=== PATIENT | female | born 1975 | race Caucasian/White ===

== ENCOUNTER 2020-08-20 20:34 | Emergency (ER) | payer OTHER ==
[2020-08-20 20:38] VITALS: TEMP 98.3
--- NOTE | 2020-08-20 21:14 | ED ---
Chest Pain HPI - General Chief Complaint: Chest Pain Stated Complaint: Chest Pain Time Seen by Provider: 08/20/20 20:40 Source: patient Mode of arrival: ambulatory Limitations: no limitations - History of Present Illness Initial Comments: 44-year-old female presents with nonspecific chest pain that started 8 hours prior to arrival. Patient states it started after helping her daughter put eyedrops in and it was stressful. Patient states it's mainly in the center to right side of her chest and it comes and goes. Patient currently has a pain level of 0-10. Patient's not short of breath. Patient did not take any medication prior to arrival. Note cardiac history per patient no medical history per patient. Patient just saw her family doctor last week Dr. Davis had a full code exam and everything was normal. No history of blood clots no leg edema no shortness of breath no cough or fever. 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 ROS Other: All systems not noted in ROS Statement are negative. Constitutional: Denies: fever, chills Respiratory: Denies: cough, dyspnea Cardiovascular: Reports: chest pain. Denies: palpitations, dyspnea on exertion, orthopnea Endocrine: Denies: fatigue Gastrointestinal: Denies: abdominal pain, nausea, vomiting EKG Findings - EKG Comments: EKG Findings:: nsr. pr interval 164. qrs: 88. vent rt 63 - EKG Results: EKG: WNL, sinus rhythm Past Medical History Past Medical History: No Reported History History of Any Multi-Drug Resistant Organisms: None Reported Past Surgical History: Section Past Psychological History: No Psychological Hx Reported Smoking Status: Never smoker Past Alcohol Use History: Occasional Past Drug Use History: None Reported General Exam Limitations: no limitations General appearance: alert, in no apparent distress Eye exam: Present: normal appearance, PERRL, EOMI. Absent: scleral icterus, conjunctival injection, periorbital swelling ENT exam: Present: normal exam, mucous membranes moist Neck exam: Present: normal inspection. Absent: tenderness, meningismus, lymphadenopathy Respiratory exam: Present: normal lung sounds bilaterally. Absent: respiratory distress, wheezes, rales, rhonchi, stridor Cardiovascular Exam: Present: regular rate, normal rhythm, normal heart sounds. Absent: systolic murmur, diastolic murmur, rubs, gallop, clicks GI/Abdominal exam: Present: soft, normal bowel sounds. Absent: distended, tenderness, guarding, rebound, rigid Course Vital Signs 08/20/20 08/20/20 08/20/20 20:35 20:56 22:00 Temperature 98.3 F Pulse Rate 72 62 Pulse Rate [ 59 L Audit Director ] Respiratory 18 16 Rate Blood Pressure 118/80 O2 Sat by Pulse 100 Oximetry Chest Pain MDM - Differential Diagnosis Esophageal Spasm, Chest Wall Syndrome, Panic Disorder/Anxiety - MDM Patient has been resting comfortably the entire visit. Patient has not had any pain the entire visit. Discussed case with , all labs and chest xray were wnl ekg:NSR pt will be discharged home and to have close follow up with pcp - [place] Criteria Clinical Symptoms of DVT: (0) No - PERC Rule No Prior History pf DVT/PE: (0) No No Recent Trauma or Surgery: (0) No - PETER Score Age > 65: (0) No 3 or more CAD Risk Factors: (0) No Known CAD with more than 50% Stenosis: (0) No Aspirin use within the Past 7 Days: (0) No Disposition Clinical Impression: Panic attack, Atypical chest pain Disposition: HOME SELF-CARE Condition: Fair Instructions (If sedation given, give patient instructions): Chest Pain (ED), Costochondritis (ED) Is patient prescribed a controlled substance at d/c from ED?: No Referrals: Lillian Davis DO [Primary Care Provider] - 1-2 days
--- NOTE | 2020-08-20 21:37 | XR ---
EXAMINATION TYPE: XR chest 2V DATE OF EXAM: 08/20/2020 COMPARISON: NONE HISTORY:chest pain TECHNIQUE: Frontal and lateral views of the chest are obtained. FINDINGS: There is no focal air space opacity, pleural effusion, or pneumothorax seen. The cardiac silhouette size is within normal limits. The osseous structures are intact. IMPRESSION: No acute cardiopulmonary process.
[2020-08-20 21:59] LABS: Basophils # (A) 0.1 k/uL (0-0.2); Basophils % (A) 1 %; Eosinophils # (A) 0.1 k/uL (0-0.7); Eosinophils % (A) 2 %; HCT 40.4 % (34.0-46.0); HGB 13.6 gm/dL (11.4-16.0); Lymphocytes # (A) 2.3 k/uL (1.0-4.8); Lymphocytes % (A) 33 %; MCH 32.5 pg (25.0-35.0); MCHC 33.7 g/dL (31.0-37.0); MCV 96.4 fL (80.0-100.0); Mean Platelet Volume 7.9; Monocytes # (A) 0.4 k/uL (0-1.0); Monocytes % (A) 5 %; Neutrophils % (A) 58 %; Platelet Count 191 k/uL (150-450); RBC 4.19 m/uL (3.80-5.40); RDW 12.1 % (11.5-15.5)
[2020-08-20 22:12] VITALS: PULSE 62; RESP 16
[2020-08-20 22:16] LABS: INR 0.9 (<1.2); Partial Thromboplastin Time 22.8 sec (22.0-30.0); Prothrombin Time 10.2 sec (9.0-12.0)
[2020-08-20 22:44] LABS: ALT 16 U/L (4-34); AST 25 U/L (14-36); African American GFR (CKD) >90 (>60 ml/min/1.73 sqM); Albumin 4.4 g/dL (3.5-5.0); Alkaline Phosphatase 58 U/L (38-126); Anion Gap 8 mmol/L; Blood Urea Nitrogen 14 mg/dL (7-17); Calcium 9.4 mg/dL (8.4-10.2); Carbon Dioxide 26 mmol/L (22-30); Chloride 103 mmol/L (98-107); Glucose 87 mg/dL (74-99); Magnesium 1.9 mg/dL (1.6-2.3); Non-African American GFR(CKD) >90 (>60 ml/min/1.73 sqM); Potassium 4.1 mmol/L (3.5-5.1); Sodium 137 mmol/L (137-145); Total Bilirubin 0.5 mg/dL (0.2-1.3); Total Protein 7.4 g/dL (6.3-8.2)
[2020-08-20 22:56] LABS: Creatine Kinase MB <0.2 ng/mL (0.0-2.4); Troponin I <0.012 ng/mL (0.000-0.034)
[2020-08-20 23:36] VITALS: BP 109/76
== END 2020-08-20 23:39 | disposition home or self-care (01) ==
LOC: EC 20:34
DX: R07.89 Other chest pain (principal); F41.0 Panic disorder [episodic paroxysmal anxiety]
CPT/HCPCS: 36415; 71046; 80053; 81025; 82553; 83735; 84484; 85025; 85379; 85610; 85730; 93005; 99284

== ENCOUNTER → 2022-04-14 | Outpatient (CLI) | payer OTHER ==
--- NOTE | 2022-04-14 14:30 | MR ---
EXAMINATION TYPE: MR brain wo/w con DATE OF EXAM: 04/14/2022 COMPARISON: None HISTORY: Headaches in front of forehead for 1 month since having covid. CONTRAST: Performed utilizing 8 mL intravenous Gadavist gadolinium contrast. TECHNIQUE: Multiplanar, multiecho imaging on a 3.0 Lissette magnet is performed through the brain. Stud y is performed within 24 hours of arrival to the hospital. The craniovertebral junction is normal. The pituitary is normal. Diffusion-weighted imaging is performed. No abnormal hyperintensity is present to suggest an acute i ntracranial infarct or acute ischemic change. No suspicious signal change is evident. Ventricles and sulci are appropriate for the patient age. No abnormal enhancement is evident. IMPRESSIONS: 1. No suspicious intracranial process
== END | disposition home or self-care (01) ==
LOC: RADMRIMAIN 13:22
PROVIDERS: ATTEND Family Medicine
DX: H53.9 Unspecified visual disturbance (principal); R51.9 Headache, unspecified
CPT/HCPCS: 70553; A9585

== ENCOUNTER 2022-05-17 08:29 | Emergency (ER) | payer OTHER ==
[2022-05-17] MEDS ORDERED: KETOROLAC 15 MG/ML 1 ML VIAL IVP STA (08:49)
[2022-05-17] MEDS ORDERED: ACETAMINOPHEN TAB 325 MG TAB PO STA (08:54)
--- NOTE | 2022-05-17 09:08 | ED ---
Weakness HPI - General Chief complaint: Weakness Stated complaint: Pain all over Time Seen by Provider: 05/17/22 08:40 Source: patient, family, RN notes reviewed Limitations: no limitations - History of Present Illness Initial comments: This is a 46-year-old female who presents to the emergency department for weakness and bruising. States that over the last three days, she has felt generally weak and has noticed bruising all over her body. These areas are painful and she denies any itching, injury, or concerns of being bitten by anything. Also notes fevers and chills. She does also have a mild cough. In addition, she has a severe headache and has had no relief with ibuprofen. She would not describe this as the worst headache of her life. She saw her primary care provider yesterday and tested negative for COVID and influenza. They were unable to get blood work at that time. Denies any personal or family history of autoimmune problems or sick contacts. Denies any dyspnea, chest pain, palpitations, abdominal pain, nausea, vomiting, or diarrhea. MD Complaint: generalized weakness Onset/Timin -: days(s) Associated Symptoms: easy bruising, fever/chills, headaches - Related Data Home Medications Medication Instructions Recorded Confirmed Ibuprofen [Motrin] 800 mg PO Q8H PRN 05/17/22 05/17/22 predniSONE 10 mg PO DIRECTED 05/17/22 05/17/22 Previous Rx's Medication Instructions Recorded HYDROcodone/APAP 5-325MG [[place] 1 tab PO Q6HR PRN 3 Days #12 tab 05/17/22 5-325] Allergies Allergy/AdvReac Type Severity Reaction Status Date / Time No Known Allergies Allergy Verified 05/17/22 09:52 Review of Systems ROS Statement: Those systems with pertinent positive or pertinent negative responses have been documented in the HPI. ROS Other: All systems not noted in ROS Statement are negative. Past Medical History Past Medical History: No Reported History History of Any Multi-Drug Resistant Organisms: None Reported Past Surgical History: Section Past Psychological History: No Psychological Hx Reported Smoking Status: Never smoker Past Alcohol Use History: Occasional Past Drug Use History: None Reported General Exam Limitations: no limitations General appearance: alert, in no apparent distress Head exam: Present: atraumatic, normocephalic, normal inspection ENT exam: Present: normal exam, normal oropharynx, mucous membranes moist Respiratory exam: Present: normal lung sounds bilaterally. Absent: respiratory distress, wheezes, rales, rhonchi, stridor Cardiovascular Exam: Present: normal rhythm, tachycardia Neurological exam: Present: alert, oriented X3, CN II-XII intact Psychiatric exam: Present: normal affect, normal mood Skin exam: Present: other (Ecchymosis to the bilateral upper and lower ext remities with involvement of the trunk and neck. These areas are very tender. No signs of petechiae.) Course Vital Signs 05/17/22 05/17/22 08:36 12:31 Temperature 101.2 F H 99.4 F Pulse Rate 112 H 98 Respiratory 16 18 Rate Blood Pressure 119/70 132/84 O2 Sat by Pulse 99 100 Oximetry Medical Decision Making - Medical Decision Making This is a 46-year-old female who presents to the emergency department for weakness and bruising. Patient was noted to be febrile on arrival and was subsequently given a dose of Tylenol. IV Toradol administered for pain, which she states was more beneficial, however she still complained of pain to the back and the head. She subsequently given a dose of morphine and Decadron, which entirely resolved the headache and significantly improved the back pain. Lab work does reveal elevated inflammatory markers and was otherwise nonactionable. Symptoms concerning for a viral syndrome versus autoimmune process. Yesterday, her primary care provider did send a course of Prednisone to the pharmacy, which she has not picked up yet. Will send a short course of [place] to the pharmacy due to the lack of improvement with ibuprofen and Tylenol. Advised that she take this very sparingly when her pain is the most severe and avoid driving or operating machinery when taking this due to the sedating effects. Also advised her to picker operator the prednisone and begin taking this. Information for rheumatology follow-up as listed below, advised she contact them regarding her symptoms and elevated inflammatory markers for further evaluation. Return precautions reviewed in depth, the patient is instructed to return to the emergency department with any new, worsening, or concerning symptoms. Patient verbalized understanding. This case was discussed in detail with the attending ED physician. Presentation, findings, and treatment plan discussed in detail as well. - Lab Data Result diagrams: 05/17/22 08:53 05/17/22 08:53 Lab Results 05/17/22 05/17/22 05/17/22 Range/Units 08:53 08:53 08:53 WBC 9.1 (3.8-10.6) k/uL RBC 3.87 (3.80-5.40) m/uL Hgb 12.4 (11.4-16.0) gm/dL Hct 35.8 (34.0-46.0) % MCV 92.5 (80.0-100.0) fL MCH 32.2 (25.0-35.0) pg MCHC 34.8 (31.0-37.0) g/dL RDW 11.7 (11.5-15.5) % Plt Count 219 (150-450) k/uL MPV 8.2 Neutrophils % 85 % Lymphocytes % 8 % Monocytes % 5 % Eosinophils % 1 % Basophils % 0 % Neutrophils # 7.7 (1.3-7.7) k/uL Lymphocytes # 0.7 L (1.0-4.8) k/uL Monocytes # 0.5 (0-1.0) k/uL Eosinophils # 0.1 (0-0.7) k/uL Basophils # 0.0 (0-0.2) k/uL ESR 76 H (0-20) mm/hr PT 9.8 (9.0-12.0) sec INR 0.9 (<1.2) APTT 24.9 (22.0-30.0) sec Sodium (137-145) mmol/L Potassium (3.5-5.1) mmol/L Chloride (98-107) mmol/L Carbon Dioxide (22-30) mmol/L Anion Gap mmol/L BUN (7-17) mg/dL Creatinine (0.52-1.04) mg/dL Est GFR (CKD-EPI)AfAm (>60 ml/min/1.73 sqM) Est GFR (CKD-EPI)NonAf (>60 ml/min/1.73 sqM) Glucose (74-99) mg/dL Plasma Lactic Acid Jack (0.7-2.0) mmol/L Calcium (8.4-10.2) mg/dL Total Bilirubin (0.2-1.3) mg/dL AST (14-36) U/L ALT (4-34) U/L Alkaline Phosphatase (38-126) U/L Troponin I (0.000-0.034) ng/mL C-Reactive Protein (<1.0) mg/dL Total Protein (6.3-8.2) g/dL Albumin (3.5-5.0) g/dL TSH (0.465-4.680) mIU/L Urine Color Yellow Urine Appearance Clear (Clear) Urine pH 6.0 (5.0-8.0) Ur Specific [place] 1.011 (1.001-1.035) Urine Protein Trace H (Negative) Urine Glucose (UA) Negative (Negative) Urine Ketones Negative (Negative) Urine Blood Trace H (Negative) Urine Nitrite Negative (Negative) Urine Bilirubin Negative (Negative) Urine Urobilinogen <2.0 (<2.0) mg/dL Ur Leukocyte Esterase Negative (Negative) Urine RBC <1 (0-5) /hpf Urine WBC 2 (0-5) /hpf Ur Squamous Epith Cells 1 (0-4) /hpf Urine Bacteria Moderate H (None) /hpf Urine Mucus Rare H (None) /hpf Urine HCG, Qual (Not Detectd) Influenza Type A (PCR) (Not Detectd) Influenza Type B (PCR) (Not Detectd) RSV (PCR) (Not Detectd) SARS-CoV-2 (PCR) (Not Detectd) 05/17/22 05/17/22 05/17/22 Range/Units 08:53 08:53 08:53 WBC (3.8-10.6) k/uL RBC (3.80-5.40) m/uL Hgb (11.4-16.0) gm/dL Hct (34.0-46.0) % MCV (80.0-100.0) fL MCH (25.0-35.0) pg MCHC (31.0-37.0) g/dL RDW (11.5-15.5) % Plt Count (150-450) k/uL MPV Neutrophils % % Lymphocytes % % Monocytes % % Eosinophils % % Basophils % % Neutrophils # (1.3-7.7) k/uL Lymphocytes # (1.0-4.8) k/uL Monocytes # (0-1.0) k/uL Eosinophils # (0-0.7) k/uL Basophils # (0-0.2) k/uL ESR (0-20) mm/hr PT (9.0-12.0) sec INR (<1.2) APTT (22.0-30.0) sec Sodium 137 (137-145) mmol/L Potassium 3.6 (3.5-5.1) mmol/L Chloride 105 (98-107) mmol/L Carbon Dioxide 24 (22-30) mmol/L Anion Gap 8 mmol/L BUN 8 (7-17) mg/dL Creatinine 0.63 (0.52-1.04) mg/dL Est GFR (CKD-EPI)AfAm >90 (>60 ml/min/1.73 sqM) Est GFR (CKD-EPI)NonAf >90 (>60 ml/min/1.73 sqM) Glucose 112 H (74-99) mg/dL Plasma Lactic Acid Jack 0.8 (0.7-2.0) mmol/L Calcium 8.3 L (8.4-10.2) mg/dL Total Bilirubin 0.5 (0.2-1.3) mg/dL AST 24 (14-36) U/L ALT 21 (4-34) U/L Alkaline Phosphatase 89 (38-126) U/L Troponin I <0.012 (0.000-0.034) ng/mL C-Reactive Protein 9.0 H (<1.0) mg/dL Total Protein 6.6 (6.3-8.2) g/dL Albumin 3.8 (3.5-5.0) g/dL TSH 2.050 (0.465-4.680) mIU/L Urine Color Urine Appearance (Clear) Urine pH (5.0-8.0) Ur Specific [place] (1.001-1.035) Urine Protein (Negative) Urine Glucose (UA) (Negative) Urine Ketones (Negative) Urine Blood (Negative) Urine Nitrite (Negative) Urine Bilirubin (Negative) Urine Urobilinogen (<2.0) mg/dL Ur Leukocyte Esterase (Negative) Urine RBC (0-5) /hpf Urine WBC (0-5) /hpf Ur Squamous Epith Cells (0-4) /hpf Urine Bacteria (None) /hpf Urine Mucus (None) /hpf Urine HCG, Qual (Not Detectd) Influenza Type A (PCR) (Not Detectd) Influenza Type B (PCR) (Not Detectd) RSV (PCR) (Not Detectd) SARS-CoV-2 (PCR) (Not Detectd) 05/17/22 05/17/22 Range/Units 08:53 09:36 WBC (3.8-10.6) k/uL RBC (3.80-5.40) m/uL Hgb (11.4-16.0) gm/dL Hct (34.0-46.0) % MCV (80.0-100.0) fL MCH (25.0-35.0) pg MCHC (31.0-37.0) g/dL RDW (11.5-15.5) % Plt Count (150-450) k/uL MPV Neutrophils % % Lymphocytes % % Monocytes % % Eosinophils % % Basophils % % Neutrophils # (1.3-7.7) k/uL Lymphocytes # (1.0-4.8) k/uL Monocytes # (0-1.0) k/uL Eosinophils # (0-0.7) k/uL Basophils # (0-0.2) k/uL ESR (0-20) mm/hr PT (9.0-12.0) sec INR (<1.2) APTT (22.0-30.0) sec Sodium (137-145) mmol/L Potassium (3.5-5.1) mmol/L Chloride (98-107) mmol/L Carbon Dioxide (22-30) mmol/L Anion Gap mmol/L BUN (7-17) mg/dL Creatinine (0.52-1.04) mg/dL Est GFR (CKD-EPI)AfAm (>60 ml/min/1.73 sqM) Est GFR (CKD-EPI)NonAf (>60 ml/min/1.73 sqM) Glucose (74-99) mg/dL Plasma Lactic Acid Jack (0.7-2.0) mmol/L Calcium (8.4-10.2) mg/dL Total Bilirubin (0.2-1.3) mg/dL AST (14-36) U/L ALT (4-34) U/L Alkaline Phosphatase (38-126) U/L Troponin I (0.000-0.034) ng/mL C-Reactive Protein (<1.0) mg/dL Total Protein (6.3-8.2) g/dL Albumin (3.5-5.0) g/dL TSH (0.465-4.680) mIU/L Urine Color Urine Appearance (Clear) Urine pH (5.0-8.0) Ur Specific [place] (1.001-1.035) Urine Protein (Negative) Urine Glucose (UA) (Negative) Urine Ketones (Negative) Urine Blood (Negative) Urine Nitrite (Negative) Urine Bilirubin (Negative) Urine Urobilinogen (<2.0) mg/dL Ur Leukocyte Esterase (Negative) Urine RBC (0-5) /hpf Urine WBC (0-5) /hpf Ur Squamous Epith Cells (0-4) /hpf Urine Bacteria (None) /hpf Urine Mucus (None) /hpf Urine HCG, Qual Not Detected (Not Detectd) Influenza Type A (PCR) Not Detected (Not Detectd) Influenza Type B (PCR) Not Detected (Not Detectd) RSV (PCR) Not Detected (Not Detectd) SARS-CoV-2 (PCR) Not Detected (Not Detectd) - Radiology Data Radiology results: report reviewed, image reviewed Disposition Clinical Impression: Weakness, Bruising, spontaneous, Febrile illness, acute Disposition: HOME SELF-CARE Instructions (If sedation given, give patient instructions): Fever in Adults (ED), Contusion in Adults (ED), Hematoma (ED) Additional Instructions: Return to the emergency department with any new, worsening, or concerning symptoms. Contact rheumatology as listed below and make sure that you tell them that you had very elevated inflammatory markers. Take the prednisone as prescribed by your primary care provider. Take the [place] very sparingly when your pain is the most severe and avoid driving or operating machinery when taking this. Follow up with your primary care provider in 1-2 days. Prescriptions: HYDROcodone/APAP 5-325MG [[place] 5-325] 1 tab PO Q6HR PRN 3 Days #12 tab PRN Reason: Pain Is patient prescribed a controlled substance at d/c from ED?: Yes When asked, does pt state using other controlled substances?: No If prescribed controlled substance>3 days was MAPS reviewed?: Prescribed <3 Days Referrals: Lillian Davis DO [Primary Care Provider] - 1-2 days Christina Membreno MD [STAFF PHYSICIAN] - 1-2 days
[2022-05-17 09:17] LABS: INR 0.9 (<1.2); Partial Thromboplastin Time 24.9 sec (22.0-30.0); Prothrombin Time 9.8 sec (9.0-12.0)
[2022-05-17 09:21] LABS: ALT 21 U/L (4-34); AST 24 U/L (14-36); African American GFR (CKD) >90 (>60 ml/min/1.73 sqM); Albumin 3.8 g/dL (3.5-5.0); Alkaline Phosphatase 89 U/L (38-126); Anion Gap 8 mmol/L; Blood Urea Nitrogen 8 mg/dL (7-17); Calcium 8.3 mg/dL (8.4-10.2); Carbon Dioxide 24 mmol/L (22-30); Chloride 105 mmol/L (98-107); Glucose 112 mg/dL (74-99); Non-African American GFR(CKD) >90 (>60 ml/min/1.73 sqM); Potassium 3.6 mmol/L (3.5-5.1); Sodium 137 mmol/L (137-145); Total Bilirubin 0.5 mg/dL (0.2-1.3); Total Protein 6.6 g/dL (6.3-8.2)
[2022-05-17 09:22] LABS: Basophils % (A) 0 %; Eosinophils # (A) 0.1 k/uL (0-0.7); Eosinophils % (A) 1 %; HCT 35.8 % (34.0-46.0); HGB 12.4 gm/dL (11.4-16.0); Lymphocytes # (A) 0.7 k/uL (1.0-4.8); Lymphocytes % (A) 8 %; MCH 32.2 pg (25.0-35.0); MCHC 34.8 g/dL (31.0-37.0); MCV 92.5 fL (80.0-100.0); Mean Platelet Volume 8.2; Monocytes # (A) 0.5 k/uL (0-1.0); Monocytes % (A) 5 %; Neutrophils # (A) 7.7 k/uL (1.3-7.7); Neutrophils % (A) 85 %; Platelet Count 219 k/uL (150-450); RBC 3.87 m/uL (3.80-5.40); RDW 11.7 % (11.5-15.5); WBC 9.1 k/uL (3.8-10.6)
--- NOTE | 2022-05-17 09:22 | XR ---
EXAMINATION TYPE: XR chest 2V DATE OF EXAM: 05/17/2022 COMPARISON: 08/20/2020 HISTORY: 46-year-old female with weakness TECHNIQUE: PA and lateral views FINDINGS: The cardiomediastinal silhouette, aorta, and pulmonary vasculature are within normal limits. Lungs an d pleural spaces are clear. IMPRESSION: No acute cardiopulmonary process.
[2022-05-17 10:27] LABS: Appearance,Urine Clear (Clear); Bacteria,Urine Moderate /hpf; Bilirubin,Urine Negative (Negative); Blood,Urine Trace (Negative); Color,Urine Yellow; Glucose,Urine (UA) Negative (Negative); Ketones,Urine Negative (Negative); Leukocyte Esterase,Urine Negative (Negative); Mucus,Urine Rare /hpf; Nitrite,Urine Negative (Negative); Protein,Urine Trace (Negative); RBC,Urine <1 /hpf (0-5); Specific Gravity,Urine 1.011 (1.001-1.035); Squamous Epithelial Cell,Urine 1 /hpf (0-4); Urobilinogen,Urine <2.0 mg/dL (<2.0); WBC,Urine 2 /hpf (0-5)
[2022-05-17 10:42] LABS: Erythrocyte Sedimentation Rate 76 mm/hr (0-20)
[2022-05-17] MEDS ORDERED: DEXAMETHASONE SOD PHOSPHATE 10 MG/ML 1 ML VIAL IVP STA (11:15)
[2022-05-17] MEDS ORDERED: MORPHINE SULFATE 2 MG/ML SYRINGE IVP STA (11:15)
[2022-05-17 12:32] VITALS: BP 132/84; PULSE 98; RESP 18; TEMP 99.4
== END 2022-05-17 12:37 | disposition home or self-care (01) ==
LOC: EC 08:29
DX: R53.1 Weakness (principal); R50.9 Fever, unspecified; R23.3 Spontaneous ecchymoses; Z20.822 Contact with and (suspected) exposure to COVID-19
CPT/HCPCS: 99285; 96374; 96375 ×2; 36415; 80053; 85652; 84443; 83605; 84484; 85025; 85610; 85730; 86140; 81001; 81025; 87636; 71046; J1100; J2270; J1885

== ENCOUNTER → 2023-04-02 | Outpatient (CLI) | payer OTHER ==
--- NOTE | 2023-04-03 19:17 | MM ---
Reason for Exam: Screening (asymptomatic). Baseline mammogram. Patient History: Menarche at age 15. First Full-Term at age 33. Late child-bearing (after 30). Last menstrual period: 03/22/2023 Risk Values: Radha 5 year model risk: 1.1%. NCI Lifetime model risk: 13.0%. Prior Study Comparison: Patient's first Mammogram. Tissue Density: The breast tissue is heterogeneously dense. This may lower the sensitivity of mammography. Findings: Analyzed By CAD. No significant mass, suspicious microcalcification, or other discrete abnormality is seen. Overall Assessment: Negative, BI-RAD 1 Management: Screening Mammogram of both breasts in 1 year. . Patient should continue monthly self-breast exams. A clinical breast exam by your physician is recommended on an annual basis. This exam should not preclude additional follow-up of suspicious palpable abnormalities. Note on Radha scores and lifetime risk: 1. A Radha score greater than 3% is considered moderate risk. If this is the case, consider specialist referral to assess eligibility for a risk reducing agent. 2. If overall lifetime risk for the development of breast cancer is 20% or higher, the patient may qualify for future screening with alternating mammogram and breast MRI. Electronically signed and approved by: Rickey Kyle M.D. Radiologist
== END | disposition home or self-care (01) ==
LOC: RADMAMWWP 12:53
PROVIDERS: ATTEND Family Medicine
DX: Z12.31 Encounter for screening mammogram for malignant neoplasm of breast (principal)
CPT/HCPCS: 77067